=== PATIENT | male | born 2005 | race Two or more races ===

== ENCOUNTER 2023-06-20 16:22 | Emergency (ER) | payer BC ==
[~2023-06-20] VITALS: Ht 172.7 cm; Wt 68.0 kg
[2023-06-20] MEDS ORDERED: AMOX-CLAV 875-1 EACH PO (16:50)
[2023-06-20] MEDS ORDERED: IBU600 MG PO (16:50)
[2023-06-20] MEDS ORDERED: MUCINEX D ER 61 EACH PO (16:50)
[2023-06-20] MEDS ORDERED: CORTISPORIN EAR10 M1 OPHT (16:51)
== END 2023-06-20 17:50 | disposition home or self-care (01) ==
LOC: ER 16:22 → EMR PED 16:22
DX: H66.92 Otitis media, unspecified, left ear (principal); H92.02 Otalgia, left ear